=== PATIENT | male | born 1990 | race Caucasian/White ===

== ENCOUNTER 2017-04-11 14:40 | Emergency (ER) | payer OTHER ==
[~2017-04-11] VITALS: Ht 188 cm; Wt 215.5 kg
[~2017-04-11 14:40] MED LIST: AZIT250T6 PO; LISI1TAB3 PO; PRED20TA PO
--- NOTE | 2017-04-11 14:51 | PHYS DOC ---
Past History Past Medical History: Cancer, Hypertension Past Surgical History: Other Alcohol Use: Rarely Drug Use: None Adult General Chief Complaint Chief Complaint: COUGH HPI HPI Patient is a 27 year old male who presents with sinus congestion and nonproductive cough over the last week. He denies any fevers chills nausea or vomiting. He states he starts coughing at times and coughs a lot. He is denied trying any kjwz-eed-ajbovbz remedies as of this time. Does have a history of non -Hodgkin's lymphoma of with he is in remission. He follows at the [facility]. Review of Systems Review of Systems Constitutional: Denies fever or chills [] Eyes: Denies change in visual acuity, redness, or eye pain [] HENT: Denies nasal congestion or sore throat [] Respiratory: Positive for cough denies any shortness of breath [] Cardiovascular: No additional information not addressed in HPI [] GI: Denies abdominal pain, nausea, vomiting, bloody stools or diarrhea [] : Denies dysuria or hematuria [] Musculoskeletal: Denies back pain or joint pain [] Integument: Denies rash or skin lesions [] Neurologic: Denies headache, focal weakness or sensory changes [] Endocrine: Denies polyuria or polydipsia [] All other systems were reviewed and found to be within normal limits, except as documented in this note. Allergies Allergies Allergies Coded Allergies Type Severity Reaction Last Updated Verified No Known Drug Allergies 07/14/14 No Physical Exam Physical Exam Constitutional: Well developed, well nourished, no acute distress, obese, non- toxic appearance. [] HENT: Normocephalic, atraumatic, bilateral external ears normal, oropharynx moist, no oral exudates, nose normal. Mild tender palpation to the frontal maxillary sinuses Eyes: PERRLA, EOMI, conjunctiva normal, no discharge. [] Neck: Normal range of motion, no tenderness, supple, no stridor. [] Cardiovascular:Heart rate regular rhythm, no murmur [] Lungs & Thorax: Bilateral breath sounds clear to auscultation [] Abdomen: Bowel sounds normal, soft, no tenderness, no masses, no pulsatile masses. [] Skin: Warm, dry, no erythema, no rash. [] Back: No tenderness, no CVA tenderness. [] Extremities: No tenderness, no cyanosis, no clubbing, ROM intact, no edema. [] Neurologic: Alert and oriented X 3, normal motor function, normal sensory function, no focal deficits noted. [] Psychologic: Affect normal, judgement normal, mood normal. [] EKG EKG [] Radiology/Procedures Radiology/Procedures [ [address] [address] IMAGING REPORT Signed PATIENT: ASHLEY MORRISON ACCOUNT: [id number] : 1990 LOCATION: ER AGE: 27 SEX: M EXAM STATUS: REG ER ORD. PHYSICIAN: LEONCIO HYMAN MD REASON: cough PROCEDURE: CHEST PA & LATERAL Chest, 2 views, 04/11/2017: History: Cough The heart size and pulmonary vascularity are normal. No pulmonary infiltrate is seen. There is no evidence of pleural fluid. IMPRESSION: No acute cardiopulmonary abnormality is detected. DICTATED AND SIGNED BY: ASHU GALINDO MD DATE: 04/11/17 1510 CC: LEONCIO HYMAN MD; PCP,NO ~ ] Impressions: Sinusitis Course & Med Decision Making Course & Med Decision Making Pertinent Labs and Imaging studies reviewed. (See chart for details) [] Dragon Disclaimer Dragon Disclaimer This electronic medical record was generated, in whole or in part, using a voice recognition dictation system. Departure Departure: Impression: Primary Impression: Sinusitis Disposition: 01 HOME, SELF-CARE Condition: STABLE Referrals: PCP,NO (PCP) Patient Instructions: Sinusitis Additional Instructions: You likely have a sinus infection and will need antibiotics for the next 7 days. Your being discharged with Augmentin and albuterol inhaler. Please follow instructions on the prescription. You can use [id number] Claritin 10 mg daily for sinus congestion. You will need to follow-up with your primary care physician regarding your elevated blood pressure. Return ER if you have severe headache, neck pain, become confused, have shortness of breath, or other concerns. Scripts Albuterol Sulfate (PROAIR HFA INHALER) 8.5 Gm Hfa.aer.ad 1-2 PUFF INH PRN Q6HRS Y for SHORTNESS OF BREATH, #1 INHALER 0 Refills Prov: LEONCIO HYMAN MD 04/11/17 Amoxicillin/Potassium Clav (AUGMENTIN 875-125 TABLET) 1 Each Tablet 1 TAB PO BID, #14 TAB Prov: LEONCIO HYMAN MD 04/11/17 LEONCIO HYMAN MD Apr 11, 2017 14:51
[2017-04-11] MEDS ORDERED: AMOX1TAB61 PO (15:22)
[2017-04-11] MEDS ORDERED: ALBU8.5H8 INH (15:22)
--- NOTE | 2017-04-11 15:43 | RAD ---
Chest, 2 views, 04/11/2017: History: Cough The heart size and pulmonary vascularity are normal. No pulmonary infiltrate is seen. There is no evidence of pleural fluid. IMPRESSION: No acute cardiopulmonary abnormality is detected.
[2017-04-11 16:00] VITALS: BP 162/86
== END 2017-04-11 16:02 | disposition home or self-care (01) ==
LOC: ER 14:40
DX: J32.9 Chronic sinusitis, unspecified (principal); I10 Essential (primary) hypertension; Z85.72 Personal history of non-Hodgkin lymphomas
CPT/HCPCS: 71020; 99284

== ENCOUNTER 2017-06-06 04:11 | Emergency (ER) | payer OTHER ==
[~2017-06-06] VITALS: Ht 188 cm; Wt 215.5 kg
[~2017-06-06 04:11] MED LIST changes: +ALBU8.5H8 INH; +AMOX1TAB61 PO
[2017-06-06] MEDS ORDERED: ACET325T9 PO (04:30)
[2017-06-06] MEDS ORDERED: OSEL75CA PO (04:30)
--- NOTE | 2017-06-06 04:31 | PHYS DOC ---
Past History Past Medical History: Cancer Past Surgical History: No Surgical History Alcohol Use: Rarely Drug Use: None Adult General Chief Complaint Chief Complaint: FEVER HPI HPI 27-year-old male with a history of Hodgkin's lymphoma presenting to the emergency department today with fever cough congestion muscle aches nausea and generally weak. He denies any known recent influenza exposure. He denies chest pain abdominal pain. His cough is a dry nonproductive cough. He denies neck stiffness confusion cyanosis. Review of systems is positive for fevers chills congestion and muscle aches. Negative for abdominal pain or chest pain. All other review of systems is negative unless otherwise noted in history of present illness. ED course: 27-year-old male presenting to the emergency department today with influenza-like symptoms. Given the poor testing characteristics of the influenza swab we will not send this as it will not change my management. too high of a false negative rate to firmly r/o. I offered the patient Tamiflu, after having a risk-benefit discussion with the patient, given his history of bone marrow transplant and timing of the disease process. The patient desires to initiate Tamiflu. Patient was notably tachycardic in the emergency department. I ordered a sterile saline bolus which the patient refused. Pt reports having a fast heart rate always. He denies chest pain or shortness of breath. His cough did improve after receiving a nebulizer in the emergency department. The patient was then discharged home in stable condition to follow up with their primary care physician over the next 2-3 days. They were to return if their symptoms worsened or if they were concerned for any reason. Face -to-face discharge instructions and return precautions were given. Patient's questions were answered to their satisfaction. Patient is comfortable with plan. Review of Systems Review of Systems SEE ABOVE. Allergies Allergies Allergies Coded Allergies Type Severity Reaction Last Updated Verified No Known Drug Allergies 07/14/14 No Physical Exam Physical Exam SEE ABOVE Constitutional: Well developed, well nourished, no acute distress, non-toxic appearance. [] HENT: Normocephalic, atraumatic, bilateral external ears normal, oropharynx moist, no oral exudates, nose normal. Eyes: PERRLA, EOMI, conjunctiva normal, no discharge. [] Neck: Normal range of motion, no tenderness, supple, no stridor. Cardiovascular:Heart rate regular rhythm, no murmur [] Lungs & Thorax: Bilateral breath sounds clear to auscultation Abdomen: Bowel sounds normal, soft, no tenderness, no masses, no pulsatile masses. [] Skin: Warm, dry, no erythema, no rash. [] Back: No tenderness, no CVA tenderness. Extremities: No tenderness, no cyanosis, no clubbing, ROM intact, no edema. [] Neurologic: Alert and oriented X 3, normal motor function, normal sensory function, no focal deficits noted. Psychologic: Affect normal, judgement normal, mood normal. EKG EKG [] Radiology/Procedures Radiology/Procedures [] Course & Med Decision Making Course & Med Decision Making Pertinent Labs and Imaging studies reviewed. (See chart for details) [] Dragon Disclaimer Dragon Disclaimer This electronic medical record was generated, in whole or in part, using a voice recognition dictation system. Departure Departure: Impression: Primary Impression: Flu-like symptoms Disposition: HOME, SELF-CARE Condition: STABLE Referrals: PCP,NO (PCP) Patient Instructions: Influenza Facts, Influenza, Adult Additional Instructions: Thank you for allowing us to participate in your care today. Followup with your primary care physician in 3 days if your symptoms do not improve. Call your Primary Doctor tomorrow and inform them of your visit today. If you do not have a primary care provider you can ask for a list of our primary care providers. Return to the emergency department you have any new or concerning findings. This should be evaluated by the primary care physician and any necessary consulting services for continued management within a few days after discharge. Return to emergency room if you have any new or concerning symptoms including but not limited to fever, chills, nausea, vomiting, intractable pain, any new rashes, chest pain, shortness of air, uncontrolled bleeding, difficulty breathing, and/or vision loss. Scripts Acetaminophen (TYLENOL) 325 Mg Tablet 2 TAB PO PRN Q6HRS Y for FEVER, #10 TAB Prov: VANE REAL MD 06/06/17 Oseltamivir Phosphate (TAMIFLU) 75 Mg Capsule 1 CAP PO BID, #10 CAP Prov: VANE REAL MD 06/06/17 VANE REAL MD Jun 06, 2017 04:30
[2017-06-06] MEDS ORDERED: IV NORMAL SALINE 1,000ML 1,000 ML IV ONE (04:45)
[2017-06-06] MEDS ORDERED: OSELTAMIVIR 75 MG CAPSULE PO ONE (04:45)
[2017-06-06] MEDS ORDERED: IPRATRPIUM/ALBUTEROL 0.5/2.5MG 3 ML NEBU. NEB ONE (04:45)
[2017-06-06 05:30] VITALS: BP 163/75
== END 2017-06-06 05:30 | disposition home or self-care (01) ==
LOC: ER 04:11
DX: R50.9 Fever, unspecified (principal); R09.81 Nasal congestion; R05 Cough; M79.1 Myalgia; R11.0 Nausea
CPT/HCPCS: 94640; 99283; J7620

== ENCOUNTER 2018-05-20 11:22 | Emergency (ER) | payer OTHER ==
[~2018-05-20] VITALS: Ht 188 cm; Wt 249.5 kg
[~2018-05-20 11:22] MED LIST changes: +ACET325T9 PO; +ALBU2.5V8 INH; -ALBU8.5H8 INH; +OSEL75CA PO
[2018-05-20] MEDS ORDERED: IPRATRPIUM/ALBUTEROL 0.5/2.5MG 3 ML NEBU. NEB ONE (11:45)
--- NOTE | 2018-05-20 12:03 | RAD ---
EXAM: Chest, 2 views. HISTORY: Cough. COMPARISON: None. FINDINGS: 2 views of the chest are obtained. There is stable mild increased central interstitial opacity likely due to slight decreased lung volumes with vascular crowding. There is no consolidation, pleural effusion or pneumothorax. The heart is normal in size. IMPRESSION: No acute pulmonary finding. Electronically signed by: Maddison Carmichael MD (05/20/2018 11:59 AM) [facility]
[2018-05-20] MEDS ORDERED: BENZONATATE 100 MG CAPSULE. PO ONE (12:15)
[2018-05-20 12:35] LABS: INFLUENZA A PATIENT NEGATIVE (NEGATIVE); INFLUENZA B PATIENT NEGATIVE (NEGATIVE)
[2018-05-20 12:48] VITALS: BP 171/115
[2018-05-20] MEDS ORDERED: ALBU2.5V8 INH (12:57)
[2018-05-20] MEDS ORDERED: METH4TAB2 PO (12:57)
[2018-05-20] MEDS ORDERED: HYDR115S2 PO (12:57)
--- NOTE | 2018-05-20 12:58 | PHYS DOC ---
Past History Past Medical History: Cancer, Hypertension Past Surgical History: Cancer Surgery Alcohol Use: None Drug Use: None Adult General Chief Complaint Chief Complaint: COUGH HPI HPI Patient is a 28 year old male who presents with complaining of cough and congestion and chest soreness since last night that gradually getting worse. Patient states he had green mucus alternating and denies nausea and vomiting, fever and chills, sick contact. Patient complaining of hurting in his throat during episodes of cough. Review of Systems Review of Systems Constitutional: Denies fever or chills [] Eyes: Denies change in visual acuity, redness, or eye pain [] HENT: Reports nasal congestion or sore throat Respiratory: Reports cough and shortness of breath Cardiovascular: No additional information not addressed in HPI [] GI: Denies abdominal pain, nausea, vomiting, bloody stools or diarrhea [] : Denies dysuria or hematuria [] Musculoskeletal: Denies back pain or joint pain [] Integument: Denies rash or skin lesions [] Neurologic: Denies headache, focal weakness or sensory changes [] Endocrine: Denies polyuria or polydipsia [] All other systems were reviewed and found to be within normal limits, except as documented in this note. Current Medications Current Medications Current Medications Medications (Trade) Dose Ordered Sig/Aranza Start Time Stop Time Status Last Admin Dose Admin Albuterol/ Ipratropium (Duoneb) 3 ml 1X ONCE 05/20/18 11:45 05/20/18 11:48 DC 05/20/18 12:08 3 ML Benzonatate (Tessalon Perle) 200 mg 1X ONCE 05/20/18 12:15 05/20/18 12:16 DC 05/20/18 12:04 200 MG Allergies Allergies Allergies Coded Allergies Type Severity Reaction Last Updated Verified No Known Drug Allergies 07/14/14 No Physical Exam Physical Exam Constitutional: Well developed, well nourished, mild distress, non-toxic appearance, morbidly obese. [] HENT: Normocephalic, atraumatic, bilateral external ears normal, oropharynx moist, pharyngeal erythema, no oral exudates, nose normal. [] Eyes: PERRLA, EOMI, conjunctiva normal, no discharge. [] Neck: Normal range of motion, no tenderness, supple, no stridor. [] Cardiovascular:Heart rate regular rhythm, no murmur [] Lungs & Thorax: Bilateral breath sounds clear to auscultation [] Abdomen: Bowel sounds normal, soft, no tenderness, no masses, no pulsatile masses. [] Skin: Warm, dry, no erythema, no rash. [] Back: No tenderness, no CVA tenderness. [] Extremities: No tenderness, no cyanosis, no clubbing, ROM intact, no edema. [] Neurologic: Alert and oriented X 3, normal motor function, normal sensory function, no focal deficits noted. [] Psychologic: Affect normal, judgement normal, mood normal. [] Current Patient Data Vital Signs Vital Signs Date Time Temp Pulse Resp B/P (MAP) Pulse Ox O2 Delivery O2 Flow Rate FiO2 05/20/18 12:09 96 Room Air 05/20/18 11:45 98.3 91 18 Lab Results Laboratory Tests Test 05/20/18 12:08 Influenza Type A (Rapid) Negative (NEGATIVE) Influenza Type B (Rapid) Negative (NEGATIVE) EKG EKG [] Radiology/Procedures Radiology/[place] [address] IMAGING REPORT Signed PATIENT: ASHLEY MORRISON ACCOUNT: [id number] : 1990 LOCATION: ER AGE: 28 SEX: M EXAM STATUS: REG ER ORD. PHYSICIAN: PARK CAPUTO MD REASON: cough and shortness of breath PROCEDURE: CHEST PA & LATERAL EXAM: Chest, 2 views. HISTORY: Cough. COMPARISON: None. FINDINGS: 2 views of the chest are obtained. There is stable mild increased central interstitial opacity likely due to slight decreased lung volumes with vascular crowding. There is no consolidation, pleural effusion or pneumothorax. The heart is normal in size. IMPRESSION: No acute pulmonary finding. Electronically signed by: Maddison Carmichael MD (05/20/2018 11:59 AM) [place] [address] DICTATED AND SIGNED BY: MADDISON CARMICHAEL MD DATE: 05/20/18 1158 CC: PARK CAPUTO MD; PCP,NO ~ Course & Med Decision Making Course & Med Decision Making Pertinent Labs and Imaging studies reviewed. (See chart for details) Evaluation of patient in ER showed 28-year-old male patient with complaining of nasal congestion and cough and sore throat since last night. Patient was afebrile in ER. Patient had blood pressure of 180s emergency room without history of hypertension. Patient treated with DuoNeb and Tessalon and felt better. Patient had negative flu and chest x-ray. Plan discharge patient home with diagnose of viral upper respiratory infection. Patient instructed to record his blood pressure and follow up with a primary care physician. Dragon Disclaimer Dragon Disclaimer This electronic medical record was generated, in whole or in part, using a voice recognition dictation system. Departure Departure: Impression: Primary Impression: Acute upper respiratory infection Additional Impressions: Morbid obesity with BMI of 70 and over, adult Elevated blood pressure reading without diagnosis of hypertension Disposition: HOME, SELF-CARE (at 1254) Condition: IMPROVED Referrals: [facility] (PCP) Patient Instructions: Upper Respiratory Infection, Adult Additional Instructions: Drink plenty of liquids Follow-up with your primary care physician in 3-5 days Return to ER if not getting better Scripts Hydrocodone/Chlorphen P-Stirex (Tussionex Pennkinetic Susp) 115 Ml Nathaly.er.12h 5 ML PO BID for cough and congestion, #60 ML Prov: PARK CAPUTO MD 05/20/18 Albuterol Sulfate (PROAIR HFA INHALER) 8.5 Gm Hfa.aer.ad 2 PUFF INH PRN Q6HRS PRN for SHORTNESS OF BREATH, #1 INHALER 0 Refills Prov: PARK CAPUTO MD 05/20/18 Methylprednisolone (MEDROL) 4 Mg Tab.ds.pk 1 PKG PO UD for inflammation, #1 PKG Prov: PARK CAPUTO MD 05/20/18 Problem Qualifiers PARK CAPUTO MD May 20, 2018 12:58
== END 2018-05-20 13:04 | disposition home or self-care (01) ==
LOC: ER 11:22
DX: J06.9 Acute upper respiratory infection, unspecified (principal); B97.89 Other viral agents as the cause of diseases classified elsewhere; I10 Essential (primary) hypertension; E66.01 Morbid (severe) obesity due to excess calories; Z68.45 Body mass index [BMI] 70 or greater, adult
CPT/HCPCS: 71046; 87804; 94640; 99284; J7620

== ENCOUNTER 2019-04-13 13:11 | Emergency (ER) | payer OTHER ==
[~2019-04-13] VITALS: Ht 188 cm; Wt 260.8 kg
[~2019-04-13 13:11] MED LIST changes: +HYDR115S2 PO; +LISI1TAB23 PO; -LISI1TAB3 PO; +METH4TAB2 PO
--- NOTE | 2019-04-13 13:33 | PHYS DOC ---
Past History Past Medical History: Cancer, Hypertension Additional Past Medical Histor: morbid obesity Past Surgical History: Cancer Surgery Alcohol Use: None Drug Use: None Adult General Chief Complaint Chief Complaint: SHORTNESS OF BREATH [facility] HPI Patient is a 29-year-old male, with a past history of lymphoma, who presents to the ED for evaluation. He states he has had nasal congestion, postnasal drip, a cough, the past month. He denies any pain, including any chest pain or pleuritic pain. He does have some mild shortness of breath with exertion. He denies any fevers or chills. He denies any otalgia or pleuritic pain. There are no alleviating or exacerbating factors to his symptoms. Patient states he is under the care of a physician who is monitoring his blood pressure but is currently not on blood pressure medications. Review of Systems Review of Systems Constitutional: Denies fever or chills [] Eyes: Denies change in visual acuity, redness, or eye pain [] HENT: Denies nasal congestion or sore throat [] Respiratory: No additional information not addressed in HPI [] Cardiovascular: No additional information not addressed in HPI [] GI: Denies abdominal pain, nausea, vomiting, bloody stools or diarrhea [] : Denies dysuria or hematuria [] Musculoskeletal: Denies back pain or joint pain [] Integument: Denies rash or skin lesions [] Neurologic: Denies headache, focal weakness or sensory changes [] Endocrine: Denies polyuria or polydipsia [] All other systems were reviewed and found to be within normal limits, except as documented in this note. Allergies Allergies Allergies Coded Allergies Type Severity Reaction Last Updated Verified No Known Drug Allergies 07/14/14 No Physical Exam Physical Exam PHYSICAL EXAM: CONSTITUTIONAL: Well developed, well nourished HEAD: normocephalic, atraumatic EENT: PERRL, EOMI. Conjunctivae normal color, sclerae non-icteric; moist mucous membranes. Mild nasal congestion is present. NECK: Supple, non-tender; no meningismus. LUNGS: Lungs CTA, breathing even and unlabored. Normal air movement. HEART: Regular rate and rhythm, no murmur CHEST: No deformity; non-tender ABDOMEN: The abdomen is soft, and non-tender, no masses or bruits. EXTREM: Normal ROM; no deformity, no calf tenderness. Normal pulses palpable in all extremities. There is no pedal edema. There are skin changes of chronic venous stasis present in the legs bilaterally. SKIN: No rash; no diaphoresis NEURO: Alert; normal speech and cognition; CN's grossly intact; strength grossly intact without focal deficit. BACK: No CVA TTP. EKG EKG Normal sinus rhythm with a normal rate, normal axis, normal intervals, there are no acute ischemic ST/T changes.[] Radiology/Procedures Radiology/Procedures PROCEDURE: CHEST PA & LATERAL PA and lateral views of the chest. Comparison: 05/20/2018. Indication: Cough and shortness of air Findings: The heart size is at the upper limits of normal. No pneumothorax or effusion. No air space or interstitial disease. The bony structures are intact. Impression: 1. No acute cardiopulmonary process. [] Course & Med Decision Making Course & Med Decision Making Pertinent Labs and Imaging studies reviewed. (See chart for details) []Influenza negative. Patient remains stable. I discussed test results, the need for close follow-up, and return precautions. Dragon Disclaimer Dragon Disclaimer This electronic medical record was generated, in whole or in part, using a voice recognition dictation system. Departure Departure: Impression: Primary Impression: Acute upper respiratory infection Additional Impression: Cough Disposition: 01 HOME, SELF-CARE Condition: STABLE Patient Instructions: Cough, Adult, Upper Respiratory Infection, Adult Scripts Benzonatate (TESSALON PERLE) 100 Mg Capsule 200 MG PO TID PRN for COUGH, #20 CAP Prov: SOPHY STERLING MD 04/13/19 Problem Qualifiers SOPHY STERLING MD Apr 13, 2019 13:33
--- NOTE | 2019-04-13 13:54 | RAD ---
PA and lateral views of the chest. Comparison: 05/20/2018. Indication: Cough and shortness of air Findings: The heart size is at the upper limits of normal. No pneumothorax or effusion. No air space or interstitial disease. The bony structures are intact. Impression: 1. No acute cardiopulmonary process. Electronically signed by: Shamar Virk MD (04/13/2019 1:51 PM) [id number]
[2019-04-13 14:00] VITALS: BP 166/121
[2019-04-13 14:06] LABS: INFLUENZA A PATIENT NEGATIVE (NEGATIVE); INFLUENZA B PATIENT NEGATIVE (NEGATIVE)
[2019-04-13] MEDS ORDERED: BENZ100C PO (14:19)
--- NOTE | 2019-04-13 14:39 | EKG ---
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
== END 2019-04-13 14:43 | disposition home or self-care (01) ==
LOC: ER 13:11
DX: J06.9 Acute upper respiratory infection, unspecified (principal); I11.0 Hypertensive heart disease with heart failure; I10 Essential (primary) hypertension; E66.01 Morbid (severe) obesity due to excess calories; Z68.45 Body mass index [BMI] 70 or greater, adult
CPT/HCPCS: 71046; 87804; 93005; 99285